=== PATIENT | female | born 1950 | race Two or more races ===

== ENCOUNTER 2023-05-24 15:01 | Emergency (ER) | payer OTHER, MEDICAID ==
[~2023-05-24] VITALS: Ht 152.4 cm; Wt 98.5 kg
[2023-05-24 15:10] VITALS: BP 181/100; RESP 18; O2SAT 96
[2023-05-24 15:27] VITALS: PULSE 104
[2023-05-24] MEDS ORDERED: LABETALOL HCL 5 MG/ML 4ML SYRINGE IV ONE (15:30)
[2023-05-24 15:43] LABS: Basophils # (auto) 0.1 10 ^3/uL (0-0.2); Basophils % (auto) 0.7 % (0.0-2.0); Eosinophils # (auto) 0.3 10 ^3/uL (0-0.8); Eosinophils % (auto) 2.3 % (0.0-7.0); Hematocrit 44.8 % (36.0-46.0); Hemoglobin 14.7 g/dL (12.2-16.2); Lymphocytes # (auto) 2.4 10 ^3/uL (0.4-5.4); Mean Corpuscular Hemoglobin 28.1 pg (28.0-32.0); Mean Corpuscular Hgb Conc. 32.8 g/dL (32.0-36.0); Mean Corpuscular Volume 85.8 fL (80.0-100.0); Monocytes # (auto) 0.8 10 ^3/uL (0-1.3); Monocytes % (auto) 7.1 % (0.0-12.0); Neutrophils # (auto) 7.3 10 ^3/uL (1.6-8.6); Neutrophils % (auto) 67.9 % (37.0-80.0); Red Blood Cells 5.22 10^6/uL (4.0-5.20); Red Cell Distribution Width 14.9 % (11.8-14.3); White Blood Cell 10.8 10^3/uL (4.4-10.8)
[2023-05-24 16:04] LABS: Alanine Aminotransferase 29 U/L (7-40); Albumin 4.7 g/dL (3.2-4.8); Alkaline Phosphatase 95 U/L (46-116); Anion Gap 5 (5-15); Aspartate Aminotransferase 23 U/L (13-40); BUN/Creatinine Ratio 20.9 (10.0-20.0); Blood Urea Nitrogen 18 mg/dL (9-23); Calcium 9.7 mg/dL (8.5-10.1); Carbon Dioxide 27 mmol/L (20-30); Chloride 109 mmol/L (98-107); Glucose 97 mg/dL (74-106); Sodium 141 mmol/L (136-145)
[2023-05-24 16:05] LABS: Bilirubin, Total 0.7 mg/dL (0.2-1.0); Total Protein 6.8 g/dL (5.7-8.2)
[2023-05-24 16:16] LABS: INR 1.06 (0.9-1.15); Partial Thromboplastin Time 29.9 SEC (24.5-34.5); Prothrombin Time 11.1 sec (9.3-11.8)
[2023-05-24 16:38] LABS: Urine Bacteria FEW /hpf (None Seen); Urine Blood Negative /uL (Negative); Urine Clarity Clear (Clear); Urine Color Colorless (Yellow); Urine Protein, UAD Negative (Negative); Urine Specific Gravity 1.005 (1.001-1.035); Urine Urobilinogen Normal (Negative); Urine WBC 2 /hpf (0 - 5)
[2023-05-24] MEDS ORDERED: AMLO1TAB22 PO (17:19)
== END 2023-05-24 20:36 | disposition home or self-care (01) ==
LOC: ER 15:01
DX: I10 Essential (primary) hypertension (principal); E11.9 Type 2 diabetes mellitus without complications; Z86.73 Personal history of transient ischemic attack (TIA), and cerebral infarction without residual deficits; Z86.2 Personal history of diseases of the blood and blood-forming organs and certain disorders involving the immune mechanism
CPT/HCPCS: 36415; 71045; 80053; 81001; 84484; 85025; 85610; 85730; 93005

== ENCOUNTER 2024-07-17 05:08 | Inpatient (IN) | payer MEDICAID, OTHER ==
[~2024-07-17] VITALS: Ht 152.4 cm; Wt 79.3 kg
[~2024-07-17 05:08] MED LIST: AMLO1TAB22 PO
[2024-07-17] MEDS: IOHEXOL 300 MG/ML 100ML BOTTLE IJ ONE (05:33)
[2024-07-17 05:34] VITALS: PULSE 109; RESP 96; O2SAT 96
[2024-07-17 06:23] LABS: Basophils # (auto) 0 10 ^3/uL (0-0.2); Basophils % (auto) 0.3 % (0.0-2.0); Eosinophils # (auto) 0.2 10 ^3/uL (0-0.8); Eosinophils % (auto) 1.2 % (0.0-7.0); Hematocrit 44.4 % (36.0-46.0); Hemoglobin 14.8 g/dL (12.2-16.2); Lymphocytes # (auto) 1.7 10 ^3/uL (0.4-5.4); Lymphocytes % (auto) 10.8 % (10.0-50.0); Mean Corpuscular Hemoglobin 28.9 pg (28.0-32.0); Mean Corpuscular Hgb Conc. 33.4 g/dL (32.0-36.0); Mean Corpuscular Volume 86.4 fL (80.0-100.0); Monocytes # (auto) 1.2 10 ^3/uL (0-1.3); Monocytes % (auto) 7.7 % (0.0-12.0); Neutrophils # (auto) 12.8 10 ^3/uL (1.6-8.6); Platelet Count (auto) 125 10^3/uL (140-450); Red Blood Cells 5.14 10^6/uL (4.0-5.20); Red Cell Distribution Width 14.6 % (11.8-14.3)
[2024-07-17 06:32] LABS: Alanine Aminotransferase 17 U/L (7-40); Albumin 4.8 g/dL (3.2-4.8); Alkaline Phosphatase 77 U/L (46-116); Anion Gap 9 (5-15); Aspartate Aminotransferase 15 U/L (13-40); BUN/Creatinine Ratio 23.2 (10.0-20.0); Blood Urea Nitrogen 19 mg/dL (9-23); Calcium 9.9 mg/dL (8.7-10.4); Carbon Dioxide 23 mmol/L (20-31); Chloride 105 mmol/L (98-107); Lipase 39 U/L (12-53); Potassium 4.3 mmol/L (3.5-5.1); Sodium 137 mmol/L (136-145); Total Protein 7.5 g/dL (5.7-8.2)
[2024-07-17 06:33] LABS: Bilirubin, Total 0.9 mg/dL (0.2-1.0)
[2024-07-17 06:34] LABS: Glucose 153 mg/dL (74-106)
--- NOTE | 2024-07-17 07:26 | ED.PDOC ---
GI ASSESSMENT HPI Comments 73 y/o F, with PMHx of CVA, DM, and HTN presents to the ED for CC of abdominal pain. Patient states, that she has been experiencing intermittent abdominal pain that radiates from her ribs to her back x1days. Patient relays, associated symptoms or acidic burps and abdominal pressure. Patient complains of current 8/10 abdominal pain. Patient denies fever, diarrhea, dysuria, or hematuria. No other symptoms or modifying factors present at this time. Chief Complaint: Abdominal Pain Time Seen by MD: 06:50 Primary Care Provider: HERLINDA Franco Notes: Nurses Notes, Medications, Allergies Allergies: Coded Allergies: NO KNOWN ALLERGIES (Unverified , 05/24/23) Home Meds Active Scripts Amlodipine Besylate (Amlodipine Besylate) 5 Mg Tab, 1 TAB PO DAILY for 30 Days, #30 TAB 5 Refills Prov:ANNETTE HOOVER ADAMA PAC 05/24/23 Reported Medications Clopidogrel Bisulfate (CLOPIDOGREL) 75 Mg Tab, 1 TAB PO DAILY 07/17/24 Benazepril Hcl (Benazepril Hcl) 20 Mg Tab, 1 TAB PO DAILY 07/17/24 Metformin Hydrochloride (Metformin Hcl) 500 Mg Tab, 1 TAB PO DAILY 07/17/24 Information Source: Patient Mode of Arrival: Ambulatory Timing: Days Duration: Since onset Prehospital treatment: None Quality: None Vomitus: None Stool: Normal Severity: Moderate Recent: None Recent Hx of: Diabetes Pain Location: Diffuse Modifying Factors: Nothing Associated sign and symptoms: Abdominal Pain Past Medical History PAST MEDICAL HISTORY: CVA, DM, HTN Surgical History: Denies all surgeries Family History Family History: Reviewed,noncontributory to illness, No family hx of Cancer, No family hx of DM, No family hx of Heart meaghan, No family hx of HTN, No family hx ofKidney meaghan, No family hx of Liver meaghan, No family hx of Lung meaghan, No family hx of Stroke Social History Smoker: Non-Smoker Alcohol: Denies ETOH Use Drugs: Denies Drug Use Lives In: Home Constitutional: denies: chills, diaphoresis, fatigue, fever, malaise, sweats, weakness, others EENTM: denies: blurred vision, double vision, ear bleeding, ear discharge, ear drainage, ear pain, ear ringing, eye pain, eye redness, hearing loss, mouth pain, mouth swelling, nasal discharge, nose bleeding, nose congestion, nose pain, photophobia, tearing, throat pain, throat swelling, voice changes, others Respiratory: denies: cough, hemoptysis, orthopnea, SOB at rest, shortness of breath, SOB with excertion, stridor, wheezing, others Cardiovascular: denies: chest pain, dizzy spells, diaphoresis, Dyspnea on exertion, edema, irregular heart beat, left arm pain, lightheadedness, palp itations, PND, syncope, others Gastrointestinal: reports: abdominal pain; denies: abdomen distended, blood streaked bowels, constipated, diarrhea, dysphagia, difficulty swallowing, hematemesis, melena, nausea, poor appetite, poor fluid intake, rectal bleeding, rectal pain, vomiting, others Genitourinary: denies: abnormal vagina bleeding, burning, dyspareunia, dysuria, flank pain, frequency, hematuria, incontinence, pain, , vagina disch arge, urgency, others Neurological: denies: dizziness, fainting, headache, left sided numbness, left sided weakness, numbness, paresthesia, pre-existing deficit, right sided numbness, right sided weakness, seizure, speech problems, tingling, tremors, weakness, others Musculoskeletal: reports: back pain; denies: gout, joint pain, joint swelling, muscle pain, muscle stiffness, neck pain, others Integumetry: denies: bruises, change in color, change in hair/nails, dryness, laceration, lesions, lumps, rash, wounds, others Allergic/Immunocompromised: denies: Difficulty Healing, Frequent Infections, Hives, Itching, others Hematologic/Lymphatic: denies: anemia, blood clots, easy bleeding, easy bruising, swollen glands, others Endocrine: denies: excessive hunger, excessive sweating, excessive thirst, excessive urination, flushing, intolerance to cold, intolerance to heat, unexplained weight gain, unexplained weight loss, others Psychiatric: denies: anxiety, bipolar disorder, depression, hopeless, panic disorder, schizophrenia, sleepless, suicidal, others All Other Systems: Reviewed and Negative Physical Exam General Appearance: Moderate Distress, Obese HEENT: Normal ENT Inspection, PERRL/EOMI Neck: Full Range of Motion, Non-Tender, Normal, Normal Inspection Respiratory: Chest Non-Tender, Lungs Clear, No Accessory Muscle Use, No Respiratory Distress, Normal Breath Sounds Cardiovascular: No Edema, No JVD, No Murmur, No Gallop, Normal Peripheral Pulses, Regular Rate/Rhythm Breast Exam: Deferred Gastrointestinal: Diffuse, Distended, Epigastric, No Organomegaly, No Pulsatile Mass, RUQ, Tenderness Genitalia: Deferred Pelvic: Deferred Rectal: Deferred Extremities: Inflammation, Leg edema, No calf tenderness, Pedal edema, Slow capillary refill, Swelling, Tender, Other (Bilateral venous stasis) Neurologic: Alert, 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 Was a procedure done?: No GI differential Dx Differential Diagnosis: Appendicitis, Bowel Obstruction, Cholecystitis, Constipation, Diverticular disease, Gastritis/PUD, Gastroenteritis, Inflammatory BD, Pancreatitis, Urolithiasis, Dehydration, Diabetes/ DKA, Drug toxicity, Electrolyte Imbalance, Hypovolemia, Renal Failure, Anemia X-Ray, Labs, Meds, VS Vital Signs Date Time Temp Pulse Resp B/P (MAP) Pulse Ox O2 Delivery O2 Flow Rate FiO2 07/17/24 11:57 98.7 100 14 119/59 (79) 94 98.7 07/17/24 09:27 100 15 131/84 (100) 94 07/17/24 07:31 99.0 92 16 139/73 (95) 96 99.0 07/17/24 05:34 98.9 109 20 141/75 (97) 96 98.9 07/17/24 05:34 109 96 96 Room Air* 0 21 07/17/24 05:20 98.9 109 20 141/75 (97) 96 98.9 Lab Test 07/17/24 05:30 07/17/24 05:20 Range/Units White Blood Count 16.0 H 4.4-10.8 10^3/uL Red Blood Count 5.14 4.0-5.20 10^6/uL Hemoglobin 14.8 12.2-16.2 g/dL Hematocrit 44.4 36.0-46.0 % Mean Corpuscular Volume 86.4 80.0-100.0 fL Mean Corpuscular Hemoglobin 28.9 28.0-32.0 pg Mean Corpuscular Hemoglobin Concent 33.4 32.0-36.0 g/dL Red Cell Distribution Width 14.6 H 11.8-14.3 % Platelet Count 125 L 140-450 10^3/uL Mean Platelet Volume 10.9 H 6.9-10.8 fL Neutrophils (%) (Auto) 80.0 37.0-80.0 % Lymphocytes (%) (Auto) 10.8 10.0-50.0 % Monocytes (%) (Auto) 7.7 0.0-12.0 % Eosinophils (%) (Auto) 1.2 0.0-7.0 % Basophils (%) (Auto) 0.3 0.0-2.0 % Neutrophils # (Auto) 12.8 H 1.6-8.6 10 ^3/uL Lymphocytes # (Auto) 1.7 0.4-5.4 10 ^3/uL Monocytes # (Auto) 1.2 0-1.3 10 ^3/uL Eosinophils # (Auto) 0.2 0-0.8 10 ^3/uL Basophils # (Auto) 0 0-0.2 10 ^3/uL Nucleated Red Blood Cells 0.0 % Sodium Level 137 136-145 mmol/L Potassium Level 4.3 3.5-5.1 mmol/L Chloride Level 105 98-107 mmol/L Carbon Dioxide Level 23 20-31 mmol/L Anion Gap 9 5-15 Blood Urea Nitrogen 19 9-23 mg/dL Creatinine 0.82 0.550-1.02 mg/dL Glomerular Filtration Rate Calc 76 >90 mL/min BUN/Creatinine Ratio 23.2 H 10.0-20.0 Serum Glucose 153 H 74-106 mg/dL Calcium Level 9.9 8.7-10.4 mg/dL Total Bilirubin 0.9 0.2-1.0 mg/dL Aspartate Amino Transferase (AST) 15 13-40 U/L Alanine Aminotransferase (ALT) 17 7-40 U/L Alkaline Phosphatase 77 46-116 U/L Troponin I High Sensitivity 7 </=34 ng/L Total Protein 7.5 5.7-8.2 g/dL Albumin 4.8 3.2-4.8 g/dL Lipase 39 12-53 U/L Urine Color Yellow Yellow Urine Clarity Clear Clear Urine pH 5.5 5.0-9.0 Urine Specific [place] > 1.035 H 1.001-1.035 Urine Protein 1+ H Negative Urine Ketones Negative Negative Urine Blood Negative Negative /uL Urine Nitrite Negative Negative Urine Bilirubin Negative Negative Urine Urobilinogen Normal Negative mg/dL Urine Leukocyte Esterase Trace Negative /uL Urine RBC 5 0 - 4 /hpf Urine Microscopic WBC 10 H 0-5 /HPF Urine Squamous Epithelial Cells Mod <5 /hpf Urine Calcium Oxalate Crystals Few None Seen Urine Bacteria Few H None Seen /hpf Urine Mucus Few None Seen Urine Glucose Normal Normal mg/dL Current Medications Medications (Trade) Dose Ordered Sig/Sudarshan Route Start Time Stop Time Status Last Admin Ceftriaxone Sodium 50 ml @ 100 mls/hr ONCE ONCE IV 07/17/24 12:15 07/17/24 12:44 DC 07/17/24 12:33 [place] [id number] Ph: [phone] DIAGNOSTIC IMAGING Diagnostic Imaging Report : [id number] Signed PATIENT: BETZAIDA SMITHACCT: [id number] UNIT: [id number] : 1950 LOC: ER ROOM / BED: / AGE / SEX: 73 / F ADM STATUS: REG ER SERVICE 1 ORDERING PHYSICIAN: GUILLE SKELTON MD PROCEDURE(s): CXRP - CHEST PORTABLE REASON: abdominal pain ORDER NUMBER(s): [id number], ACCESSION NUMBER(s): [id number] EXAM: XY CHEST PORTABLE Indication: pain Technique: Single frontal view of the chest was obtained Comparison: XY CHEST PORTABLE on DOS: 05/24/23 FINDINGS: Lines and Tubes: None Lungs: No focal consolidation. Pleura: No effusion. No pneumothorax. Cardiomediastinal contours: Unremarkable Bones: No acute osseous abnormality. IMPRESSION: No acute cardiopulmonary disease. ATED BY: SHAYNE ROCKWELL MD DICTATED DATE/TIME: 07/17/24757 SIGNED BY: SHAYNE ROCKWELL MD SIGNED DATE/TIME: 07/17/24757 CC: [place] [id number] Ph: [phone] DIAGNOSTIC IMAGING Diagnostic Imaging Report : [id number] Signed PATIENT: BETZAIDA SMITHACCT: [id number] UNIT: [id number] : 1950 LOC: ER ROOM / BED: / AGE / SEX: 73 / F ADM STATUS: REG ER SERVICE 0512 ORDERING PHYSICIAN: GUILLE SKELTON MD PROCEDURE(s): ABPLIV - CT AB PEL WITH IV CON ONLY REASON: abdominal pain ORDER NUMBER(s): [id number], ACCESSION NUMBER(s): [id number] Exam: CT CT AB PEL WITH IV CON ONLY History: Abdominal pain Comparison Study: None available at time of dictation. Contrast: Type of contrast: Omnipaque 300 Contrast injected: 100 mL Contrast wasted: 0 TECHNIQUE: CT of the abdomen pelvis was performed with intravenous contrast from the lung bases to the proximal femurs. Coronal and sagittal reformatted images are submitted. Radiation Dose Information: CT Dose: CTDI volume is 21.0 mGy. Dose-length product is 1125.11 mGy*cm FINDINGS: Lung Bases: Atelectasis in the lingula. Normal heart size. No pleural or pericardial effusion. Liver: The liver is normal in size. No focal lesions. Normal hepatic vascular enhancement. Gallbladder and Biliary Tree: Gallbladder edema and wall thickening with pericholecystic fat stranding. No calcified gallstones noted. Spleen: Two circumscribed enhancing masses in the spleen the larger measuring 1.1 cm. Pancreas: The pancreas is normal in appearance without focal lesions or abnormal enhancement. Adrenal Glands: Unremarkable Kidneys: Kidneys demonstrate normal symmetric enhancement without focal lesions, calculi or hydronephrosis. Bladder: There is a 1.4 cm calcified bladder stone. Bowel: The stomach is grossly normal in appearance. Small bowel is normal in caliber. Sigmoid diverticulosis without acute diverticulitis. The appendix is visualized and is normal. Peritoneum: No pneumoperitoneum. No ascites. Lymphadenopathy: No mesenteric, retroperitoneal or periportal lymphadenopathy. Abdominal Wall and Mesentery: Unremarkable. Vasculature: The visualized abdominal aorta is normal in size and caliber. Abdominal and pelvic vessels demonstrate normal enhancement. Pelvic Organs: Uterus is absent. Musculoskeletal: No aggressive focal bony lesions, acute fractures or dislocation. Multilevel facet arthropathy. Soft tissues: Left breast implant. Fat containing umbilical hernia. IMPRESSION: 1. Gallbladder wall thickening and pericholecystic fat stranding. Findings are concerning for acute cholecystitis. Right upper quadrant ultrasound is recommended. 2. Sigmoid diverticulosis without acute diverticulitis. 3. Bladder stone. All CT scans at this medical facility are performed using dose modulation techniques as appropriate to a performed exam including the following: Automated exposure control was utilized; adjustment of the MA and/or KV according to patient size; and use of iterative reconstruction technique. ATED BY: DIANE CAZARES MD DICTATED DATE/TIME: 07/17/24804 SIGNED BY: DIANE CAZARES MD SIGNED DATE/TIME: 07/17/24804 CC: X-Ray, Labs, Meds, VS Comment Course in the emergency department eventful Patient presented with severe abdominal pain with the nausea and a blood pressure of 159/95 The chest x-ray is normal CT of the abdomen and pelvis shows a bladder stone 1.4 cm acute cholecystitis and umbilical hernia CBC 87485 with 80% neutrophils H&H normal platelet count 125 CMP normal except for blood sugar of 153 Urine Lipase 39 Troponin seven Ultrasound shows acute cholelithiasis and acute cholecystitis Patient will be admitted for further care Time of 1ST Reevaluation: 07:20 Reevaluation 1ST: Unchanged Time of 2ND Reevaluation: 12:03 Reevaluation 2ND: Improved Patient Education/Counseling: Diagnosis, Treatment, Prognosis Family Education/Counseling: Diagnosis, Treatment, Prognosis, No Family Present Departure 1 Departure Time of Disposition: 19:50 Impression: Primary Impression: Acute abdominal complaint Additional Impressions: Cholecystitis Fatty liver Umbilical hernia Qualified Codes: K42.9 - Umbilical hernia without obstruction or gangrene Diabetes mellitus Qualified Codes: E11.9 - Type 2 diabetes mellitus without complications Venous stasis dermatitis of both lower extremities Disposition: ADMITTED INPATIENT Admit to: [facility] Condition: Fair Critical Care Note Critical Care Time?: No Stability Stability form required: Yes Unstable for transfer: Telemetry monitoring (Telemetry monitoring required), Requires medication (Requires Med for stabilization) Heart Score Heart Score: Heart Score Response (Comments) Value History N/A 0 EKG N/A 0 Age N/A 0 Risk Factors N/A 0 Troponin Normal limit 0 Total 0 I personally scribed for PERI CUMMINGS MD ([email or web address]) on 07/17/24 at 07:26. Electronically submitted by Renetta Jacobson ([email or web address]). I personally scribed for PERI CUMMINGS MD ([email or web address]) on 07/17/24 at 08:06. Electronically submitted by Renetta Jacobson ([email or web address]). I personally scribed for PERI CUMMINGS MD ([email or web address]) on 07/17/24 at 08:10. Electronically submitted by Renetta Jacobson ([email or web address]). PERI CUMMINGS MD Jul 17, 2024 07:26
--- NOTE | 2024-07-17 08:01 | DVH ---
EXAM: XY CHEST PORTABLE Indication: pain Technique: Single frontal view of the chest was obtained Comparison: XY CHEST PORTABLE on DOS: 05/24/23 FINDINGS: Lines and Tubes: None Lungs: No focal consolidation. Pleura: No effusion. No pneumothorax. Cardiomediastinal contours: Unremarkable Bones: No acute osseous abnormality. IMPRESSION: No acute cardiopulmonary disease.
--- NOTE | 2024-07-17 08:07 | DVH ---
Exam: CT CT AB PEL WITH IV CON ONLY History: Abdominal pain Comparison Study: None available at time of dictation. Contrast: Type of contrast: Omnipaque 300 Contrast injected: 100 mL Contrast wasted: 0 TECHNIQUE: CT of the abdomen pelvis was performed with intravenous contrast from the lung bases to th e proximal femurs. Coronal and sagittal reformatted images are submitted. Radiation Dose Information: CT Dose: CTDI volume is 21.0 mGy. Dose-length product is 1125.11 mGy*cm FINDINGS: Lung Bases: Atelectasis in the lingula. Normal heart size. No pleural or pericardial effusion. Liver: The liver is normal in size. No focal lesions. Normal hepatic vascular enhancement. Gallbladder and Biliary Tree: Gallbladder edema and wall thickening with pericholecystic fat strandi ng. No calcified gallstones noted. Spleen: Two circumscribed enhancing masses in the spleen the larger measuring 1.1 cm. Pancreas: The pancreas is normal in appearance without focal lesions or abnormal enhancement. Adrenal Glands: Unremarkable Kidneys: Kidneys demonstrate normal symmetric enhancement without focal lesions, calculi or hydroneph rosis. Bladder: There is a 1.4 cm calcified bladder stone. Bowel: The stomach is grossly normal in appearance. Small bowel is normal in caliber. Sigmoid diverti culosis without acute diverticulitis. The appendix is visualized and is normal. Peritoneum: No pneumoperitoneum. No ascites. Lymphadenopathy: No mesenteric, retroperitoneal or periportal lymphadenopathy. Abdominal Wall and Mesentery: Unremarkable. Vasculature: The visualized abdominal aorta is normal in size and caliber. Abdominal and pelvic vess els demonstrate normal enhancement. Pelvic Organs: Uterus is absent. Musculoskeletal: No aggressive focal bony lesions, acute fractures or dislocation. Multilevel facet a rthropathy. Soft tissues: Left breast implant. Fat containing umbilical hernia. IMPRESSION: 1. Gallbladder wall thickening and pericholecystic fat stranding. Findings are concerning for acute cholecystitis. Right upper quadrant ultrasound is recommended. 2. Sigmoid diverticulosis without acute diverticulitis. 3. Bladder stone. All CT scans at this medical facility are performed using dose modulation techniques as appropriate t o a performed exam including the following: Automated exposure control was utilized; adjustment of th e MA and/or KV according to patient size; and use of iterative reconstruction technique.
[2024-07-17 09:49] LABS: Urine Bacteria FEW /hpf (None Seen); Urine Blood Negative /uL (Negative); Urine Clarity Clear (Clear); Urine Color Yellow (Yellow); Urine Mucus FEW (None Seen); Urine Protein, UAD 1+ (Negative); Urine Squamous Epithelial Cell MOD /hpf (<5); Urine Urobilinogen Normal (Negative); Urine WBC 10 /HPF (0-5); Urine pH 5.5 (5.0-9.0)
[2024-07-17 09:50] LABS: Urine Specific Gravity > 1.035 (1.001-1.035)
--- NOTE | 2024-07-17 10:18 | DVH ---
EXAM: US GALLBLADDER INDICATION: Cholecystitis TECHNIQUE: Multiple real-time sonographic images were obtained of the right upper quadrant. COMPARISON: None FINDINGS: The liver demonstrates increased echotexture without focal mass lesions. The liver measures 16.8 cm in length. There is hepatopedal color doppler flow in the main portal vein. There is no intr ahepatic biliary ductal dilatation. The gallbladder is distended and contains multiple gallstones. The gallbladder wall measures 0.3 cm . The common bile duct measures 0.4 cm. There is a positive sonographic Keys's sign. The right kidney measures 7.7 cm. The right kidney is normal in contour, size, and shape. The echog enicity is normal. There is no hydronephrosis. The pancreas is not well visualized due to overlying bowel gas. Visualized portions of the aorta and inferior vena cava are unremarkable. No evidence of ascites. IMPRESSION: 1. Distended gallbladder with multiple gallstones. Positive sonographic keys's sign and mild gallbl adder wall thickening suspicious for acute cholecystitis. 2. Fatty infiltration of the liver.
[2024-07-17] MEDS: cefTRIAXone 1GM/50ML D5W 50 ML IV ONE (12:33)
[2024-07-17] MEDS ORDERED: MORPHINE SULFATE INJ 2 MG/ml SYRG IV PRN ×2 (12:45)
[2024-07-17] MEDS ORDERED: ACETAMINOPHEN 650 mg PER 20.3 mL UD PO PRN (12:45)
[2024-07-17] MEDS ORDERED: NITROGLYCERIN 0.4 MG SL TAB SL PRN (12:45)
[2024-07-17] MEDS ORDERED: DEXTROSE (50%) 50ML SYRG IV PRN (12:45)
--- NOTE | 2024-07-17 13:04 | DVHHP2 ---
History of Present Illness Reason for Visit: Abdominal pain History of Present Illness 73 y/o F, with PMHx of CVA, DM, and HTN presents to the ED for CC of abdominal pain. Patient states, that she has been experiencing intermittent abdominal pain that radiates from her ribs to her back x1days. Patient relays, associated sympt oms or acidic burps and abdominal pressure. Patient complains of current 8/10 abdominal pain. Patient denies fever, diarrhea, dysuria, or hematuria. No other symptoms or modifying factors present at this time. She was evaluated in the ER including a CT of the abdomen and pelvis as well as ultrasound of the gallbladder. These studies reveal a acute cholecystitis. Given her symptoms with these findings she is being admitted to the hospital for surgical evaluation and further management. Past Medical History CVA, DM, HTN Past Surgical History: None Family History: Hypertension Smoke: No ALCOHOL: rare Lives: with Family Review of Systems Review of Systems Abdominal pain with nausea. No fevers chills or sweats. No chest pain or shortness of breath. No headache or dizziness. Other review of systems reviewed normal. Allergies: Coded Allergies: NO KNOWN ALLERGIES (Unverified , 05/24/23) Exam Vital Signs Vital Signs Date Time Temp Pulse Resp B/P (MAP) Pulse Ox O2 Delivery O2 Flow Rate FiO2 07/17/24 11:57 98.7 100 14 119/59 (79) 94 98.7 07/17/24 05:34 Room Air* 0 21 Exam Alert awake oriented x3. HEENT neck supple no JVD pupils equal round react light. Heart regular rate and rhythm S1 was S2 no audible murmurs or gallops. Lungs fair air movement. Chest wall expansion. No rales or wheezes. Abdomen is soft. Nondistended. Tenderness to palpation in the right upper quadrant region without rebound or guarding. Extremities no edema. Positive distal pedal pulses. Neurologic no focal deficits. Labs/Xrays Labs Test 07/17/24 05:30 07/17/24 05:20 Range/Units White Blood Count 16.0 H 4.4-10.8 10^3/uL Red Blood Count 5.14 4.0-5.20 10^6/uL Hemoglobin 14.8 12.2-16.2 g/dL Hematocrit 44.4 36.0-46.0 % Mean Corpuscular Volume 86.4 80.0-100.0 fL Mean Corpuscular Hemoglobin 28.9 28.0-32.0 pg Mean Corpuscular Hemoglobin Concent 33.4 32.0-36.0 g/dL Red Cell Distribution Width 14.6 H 11.8-14.3 % Platelet Count 125 L 140-450 10^3/uL Mean Platelet Volume 10.9 H 6.9-10.8 fL Neutrophils (%) (Auto) 80.0 37.0-80.0 % Lymphocytes (%) (Auto) 10.8 10.0-50.0 % Monocytes (%) (Auto) 7.7 0.0-12.0 % Eosinophils (%) (Auto) 1.2 0.0-7.0 % Basophils (%) (Auto) 0.3 0.0-2.0 % Neutrophils # (Auto) 12.8 H 1.6-8.6 10 ^3/uL Lymphocytes # (Auto) 1.7 0.4-5.4 10 ^3/uL Monocytes # (Auto) 1.2 0-1.3 10 ^3/uL Eosinophils # (Auto) 0.2 0-0.8 10 ^3/uL Basophils # (Auto) 0 0-0.2 10 ^3/uL Nucleated Red Blood Cells 0.0 % Sodium Level 137 136-145 mmol/L Potassium Level 4.3 3.5-5.1 mmol/L Chloride Level 105 98-107 mmol/L Carbon Dioxide Level 23 20-31 mmol/L Anion Gap 9 5-15 Blood Urea Nitrogen 19 9-23 mg/dL Creatinine 0.82 0.550-1.02 mg/dL Glomerular Filtration Rate Calc 76 >90 mL/min BUN/Creatinine Ratio 23.2 H 10.0-20.0 Serum Glucose 153 H 74-106 mg/dL Calcium Level 9.9 8.7-10.4 mg/dL Total Bilirubin 0.9 0.2-1.0 mg/dL Aspartate Amino Transferase (AST) 15 13-40 U/L Alanine Aminotransferase (ALT) 17 7-40 U/L Alkaline Phosphatase 77 46-116 U/L Troponin I High Sensitivity 7 </=34 ng/L Total Protein 7.5 5.7-8.2 g/dL Albumin 4.8 3.2-4.8 g/dL Lipase 39 12-53 U/L Urine Color Yellow Yellow Urine Clarity Clear Clear Urine pH 5.5 5.0-9.0 Urine Specific [place] > 1.035 H 1.001-1.035 Urine Protein 1+ H Negative Urine Ketones Negative Negative Urine Blood Negative Negative /uL Urine Nitrite Negative Negative Urine Bilirubin Negative Negative Urine Urobilinogen Normal Negative mg/dL Urine Leukocyte Esterase Trace Negative /uL Urine RBC 5 0 - 4 /hpf Urine Microscopic WBC 10 H 0-5 /HPF Urine Squamous Epithelial Cells Mod <5 /hpf Urine Calcium Oxalate Crystals Few None Seen Urine Bacteria Few H None Seen /hpf Urine Mucus Few None Seen Urine Glucose Normal Normal mg/dL Assessment/Plan Assessment/Plan We will admit to telemetry floor. Keep her NPO. Surgical consultation obta ined. IV fluids. Empiric IV antibiotics. Pain and nausea medications. Routine labs including chest x-ray EKG and dysuria as preop evaluation. Otherwise continue rest of supportive care and treatment. Further clinical management for clinical course and the recommendation of the general surgeon. Patient is diabetic with the given her age she is at low risk for perioperative complications. Patient does not have any history of coronary artery disease or AR in the past. Patient is stable to undergo gallbladder surgery. Plan discussed with: Other My Orders Orders - JARRETT WILKERSON MD Procedure Category Date Status Time Admit ADMIT 07/17/24 Verified 12:42 Nitroglycerin PHA 07/17/24 Verified Sublingual (Ntrostat 12:45 Morphine Sulfate PHA 07/17/24 Verified Injection 12:45 Stat Ekg For Chest [facility] 07/17/24 Verified Pain 12:42 Notify Of Changes [facility] 07/17/24 Verified From Base 12:42 Digitizer For [facility] 07/17/24 Verified 24 Hours 12:42 Emergency Dysrhythmia [facility] 07/17/24 Verified Protocol 12:42 Rhythm Strips Once [facility] 07/17/24 Verified Every Shift 12:42 Oxygen By Nasal RT 07/17/24 Verified Cannula 12:42 * Surgical Consult CONS 07/17/24 Verified Npo Except Ice Chips [facility] 07/17/24 Verified 12:42 Npo (Nothing By DIET 07/17/24 Verified Mouth) Diet Lunch PTPTT LAB 07/17/24 Verified 12:42 Electrocardigram EKG 07/17/24 Verified 12:42 D5w/Sod Chlo 0.9% Ns PHA 07/17/24 Verified 12:45 Ceftriaxone Ivpb PHA 07/18/24 Verified Rocephin 09:00 Metronidazole Ivpb PHA 07/17/24 Verified Flagyl 14:00 Famotidine Injection PHA 07/17/24 Verified (Pepcid Injection) 22:00 Acetaminophen PHA 07/17/24 Verified Solution Oral 12:45 Communication Order ORDERS 07/17/24 Verified 12:42 Complete Blood Count LAB 07/18/24 Verified 04:00 Comprehensive LAB 07/18/24 Verified Metabolic Panel 04:00 Enalaprilat Injection PHA 07/17/24 Verified (Vasotec Injection 12:45 Morphine Sulfate PHA 07/17/24 Verified Injection 12:45 Morphine Sulfate PHA 07/17/24 Verified Injection 12:45 Ondansetron Hcl PHA 07/17/24 Verified (Zofran) 12:45 Glucose Blood PHA 07/17/24 Verified (Accu-Chek Comfort 18:00 Mild Sliding Scale PHA 07/17/24 Verified Npo - Q6hr 18:00 Dextrose 50% Syringe PHA 07/17/24 Verified 12:45 Problem List: (1) Acute abdominal complaint (2) Diabetes mellitus (3) Cholecystitis JARRETT WILKERSON MD Jul 17, 2024 13:04
[2024-07-17 13:58] LABS: INR 1.07 (0.9-1.15); Prothrombin Time 11.3 sec (9.3-11.8)
[2024-07-17 14:00] VITALS: PULSE 87; RESP 14; O2SAT 95
[2024-07-17] MEDS: D5W/SOD CHLO 0.9% 1,000 ML IV SCH (14:23)
[2024-07-17] MEDS: metroNIDAZOLE 500MG/100ML 100 ML IV SCH (14:26)
[2024-07-17 16:21] VITALS: PULSE 88; RESP 19; O2SAT 96
[2024-07-17] MEDS ORDERED: BENA-36 PO (16:30)
[2024-07-17] MEDS ORDERED: CLOP75TA70 PO (16:30)
[2024-07-17] MEDS ORDERED: METF-370 PO (16:30)
[2024-07-17 17:00] VITALS: BP 113/80; PULSE 88; RESP 19; TEMP 98.7; O2SAT 96
[2024-07-17] MEDS: ACCU-CHEK COMFORT CURVE STRIP VI SCH (17:21)
[2024-07-17] MEDS: InsuLIN REG 1unit/0.01ml Soln (100units/ml) SC SCH (17:22)
[2024-07-17 18:00] LABS: INR 1.12 (0.9-1.15); Prothrombin Time 11.7 sec (9.3-11.8)
--- NOTE | 2024-07-17 18:39 | ECG ---
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
[2024-07-17 20:00] VITALS: PULSE 79; PULSE 96; RESP 17; O2SAT 95
[2024-07-17 21:00] VITALS: BP 157/84; PULSE 96; RESP 17; O2SAT 85
[2024-07-17] MEDS: FAMOTIDINE (10MG/ML) 2ML VL IV SCH (21:38)
[2024-07-17] MEDS: MORPHINE SULFATE INJ 2 MG/ml SYRG IV PRN (21:39)
[2024-07-18] VITALS (13 sets, daily range): BP systolic 111–169; BP diastolic 48–83; PULSE 18–91; RESP 16–93; TEMP 82–99.7; O2SAT 91–99
[2024-07-18 06:17] LABS: Alanine Aminotransferase 14 U/L (7-40); Albumin 3.9 g/dL (3.2-4.8); Alkaline Phosphatase 58 U/L (46-116); Anion Gap 8 (5-15); BUN/Creatinine Ratio 20.5 (10.0-20.0); Blood Urea Nitrogen 17 mg/dL (9-23); Calcium 8.8 mg/dL (8.7-10.4); Carbon Dioxide 24 mmol/L (20-31); Potassium 3.6 mmol/L (3.5-5.1); Sodium 140 mmol/L (136-145); Total Protein 6.2 g/dL (5.7-8.2)
[2024-07-18 06:18] LABS: Chloride 108 mmol/L (98-107)
[2024-07-18 06:19] LABS: Aspartate Aminotransferase 11 U/L (13-40); Bilirubin, Total 1.3 mg/dL (0.2-1.0); Glucose 173 mg/dL (74-106)
[2024-07-18] MEDS: cefTRIAXone 1GM/50ML D5W 50 ML IV SCH (08:56)
[2024-07-18 09:02] LABS: Basophils # (auto) 0 10 ^3/uL (0-0.2); Basophils % (auto) 0.4 % (0.0-2.0); Eosinophils # (auto) 0.3 10 ^3/uL (0-0.8); Eosinophils % (auto) 3.4 % (0.0-7.0); Hematocrit 38.9 % (36.0-46.0); Lymphocytes # (auto) 1.8 10 ^3/uL (0.4-5.4); Lymphocytes % (auto) 18.4 % (10.0-50.0); Mean Corpuscular Hemoglobin 28.9 pg (28.0-32.0); Mean Corpuscular Hgb Conc. 33.5 g/dL (32.0-36.0); Mean Corpuscular Volume 86.3 fL (80.0-100.0); Monocytes # (auto) 1.2 10 ^3/uL (0-1.3); Monocytes % (auto) 12.4 % (0.0-12.0); Neutrophils # (auto) 6.5 10 ^3/uL (1.6-8.6); Neutrophils % (auto) 65.4 % (37.0-80.0); Red Blood Cells 4.51 10^6/uL (4.0-5.20); Red Cell Distribution Width 14.1 % (11.8-14.3)
[2024-07-18 09:09] LABS: Platelet Count (auto) 122 10^3/uL (140-450)
[2024-07-18] MEDS: SUCCINYLCHOLINE CHLORIDE 20 MG/ML 10ML VIAL IV ONE (12:01)
[2024-07-18] MEDS ORDERED: fentaNYL CITRATE 100 MCG/2 ML VL ONE (12:02)
[2024-07-18] MEDS ORDERED: PROPOFOL 10 MG/ML 20 ML IV ONE (12:03)
--- NOTE | 2024-07-18 12:04 | DVHINCON2 ---
Date of service: July 18, 2024 History of Present Illness 73yo female who presents to the hospital for evaluation of abd pain. pt has had ruq pain, and postprandial n/v/discomfort. Past Medical History breast ca, left lumpectomy, dm, htn, cad Past Surgical History back surgery, liposuction, left breast surgery Family History: Patient reports no known family medical history. Allergies: Coded Allergies: NO KNOWN ALLERGIES (Unverified , 05/24/23) Home Meds Active Scripts Amlodipine Besylate (Amlodipine Besylate) 5 Mg Tab, 1 TAB PO DAILY for 30 Days, #30 TAB 5 Refills Prov:ANNETTE HOOVER ADAMA PAC 05/24/23 Reported Medications Clopidogrel Bisulfate (CLOPIDOGREL) 75 Mg Tab, 1 TAB PO DAILY 07/17/24 Benazepril Hcl (Benazepril Hcl) 20 Mg Tab, 1 TAB PO DAILY 07/17/24 Metformin Hydrochloride (Metformin Hcl) 500 Mg Tab, 1 TAB PO DAILY 07/17/24 Current Medications Current Medications Medications (Trade) Dose Ordered Sig/Sudarshan Route PRN Reason Start Time Stop Time Status Last Admin Nitroglycerin (Ntrostat Sublingual) 0.4 mg Q5MINP PRN SL FOR CHEST PAIN 07/17/24 12:45 Morphine Sulfate 2 mg Q30M PRN IV FOR CHEST PAIN 07/17/24 12:45 Dextrose/Sodium Chloride 1,000 ml @ 75 mls/hr [id number] IV 07/17/24 12:45 07/18/24 10:53 Ceftriaxone Sodium 50 ml @ 100 mls/hr DAILY@09 IV 07/18/24 09:00 07/18/24 08:56 Metronidazole 100 ml @ 100 mls/hr Q8HR IV 07/17/24 14:00 07/18/24 05:49 Famotidine (Pepcid Injection) 20 mg Q12HR IV 07/17/24 22:00 07/18/24 08:56 Acetaminophen (Tylenol Solution Oral) 650 mg Q6HP PRN PO PAIN SCALE 1-3 OR TEMP>100.4 07/17/24 12:45 Enalaprilat (Vasotec Injection) 1.25 mg Q6HP PRN IV SBP>160 07/17/24 12:45 Morphine Sulfate 2 mg Q3HPRN PRN IV SEVERE PAIN (7-10 PAIN SCALE) 07/17/24 12:45 07/17/24 21:39 Morphine Sulfate 1 mg Q3HP PRN IV MODERATE PAIN (4-6 PAIN SCALE) 07/17/24 12:45 Ondansetron HCl (Zofran) 4 mg Q4HPRN PRN IV NAUSEA / VOMITING 07/17/24 12:45 Diagnostic Test (Pha) (Accu-Chek Comfort Curve T) 1 strip Q6HR 07/17/24 18:00 07/18/24 05:49 Insulin Human Regular (InsuLIN R) Q6HR SC 07/17/24 18:00 Dextrose 50 ml UD PRN IV Blood Sugar LESS THAN 60 07/17/24 12:45 Review of Systems neg unless mentioned in hpi Vital Signs Vital Signs Date Time Temp Pulse Resp B/P (MAP) Pulse Ox O2 Delivery O2 Flow Rate FiO2 07/18/24 09:00 99.1 81 18 136/61 (86) 94 99.1 07/18/24 08:00 Room Air* 0 21 Physical Exam gen; aaox3,nad abd; morbidly obese, soft , nd, nttp, no r r g ext; no edema Labs/Diagnostic Data Labs Test 07/18/24 08:30 07/18/24 05:27 07/17/24 21:51 07/17/24 16:45 Range/Units White Blood Count 10.0 # 4.4-10.8 10^3/uL Red Blood Count 4.51 4.0-5.20 10^6/uL Hemoglobin 13.0 12.2-16.2 g/dL Hematocrit 38.9 # 36.0-46.0 % Mean Corpuscular Volume 86.3 80.0-100.0 fL Mean Corpuscular Hemoglobin 28.9 28.0-32.0 pg Mean Corpuscular Hemoglobin Concent 33.5 32.0-36.0 g/dL Red Cell Distribution Width 14.1 11.8-14.3 % Platelet Count 122 L 140-450 10^3/uL Mean Platelet Volume 10.7 6.9-10.8 fL Neutrophils (%) (Auto) 65.4 37.0-80.0 % Lymphocytes (%) (Auto) 18.4 10.0-50.0 % Monocytes (%) (Auto) 12.4 H 0.0-12.0 % Eosinophils (%) (Auto) 3.4 0.0-7.0 % Basophils (%) (Auto) 0.4 0.0-2.0 % Neutrophils # (Auto) 6.5 1.6-8.6 10 ^3/uL Lymphocytes # (Auto) 1.8 0.4-5.4 10 ^3/uL Monocytes # (Auto) 1.2 0-1.3 10 ^3/uL Eosinophils # (Auto) 0.3 0-0.8 10 ^3/uL Basophils # (Auto) 0 0-0.2 10 ^3/uL Nucleated Red Blood Cells 0.0 % Sodium Level 140 136-145 mmol/L Potassium Level 3.6 3.5-5.1 mmol/L Chloride Level 108 H 98-107 mmol/L Carbon Dioxide Level 24 20-31 mmol/L Anion Gap 8 5-15 Blood Urea Nitrogen 17 9-23 mg/dL Creatinine 0.83 0.550-1.02 mg/dL Glomerular Filtration Rate Calc 75 >90 mL/min BUN/Creatinine Ratio 20.5 H 10.0-20.0 Serum Glucose 173 H 74-106 mg/dL Calcium Level 8.8 8.7-10.4 mg/dL Total Bilirubin 1.3 H 0.2-1.0 mg/dL Aspartate Amino Transferase (AST) 11 L 13-40 U/L Alanine Aminotransferase (ALT) 14 7-40 U/L Alkaline Phosphatase 58 46-116 U/L Total Protein 6.2 5.7-8.2 g/dL Albumin 3.9 3.2-4.8 g/dL POC Glucose 116 H 70-106 mg/dl Prothrombin Time 11.7 9.3-11.8 sec Prothrombin Time INR 1.12 0.9-1.15 Test 07/17/24 13:11 07/17/24 05:30 07/17/24 05:20 Range/Units Activated Partial Thromboplast Time 24.0 L 24.5-34.5 SEC Troponin I High Sensitivity 7 </=34 ng/L Lipase 39 12-53 U/L Urine Color Yellow Yellow Urine Clarity Clear Clear Urine pH 5.5 5.0-9.0 Urine Specific [place] > 1.035 H 1.001-1.035 Urine Protein 1+ H Negative Urine Ketones Negative Negative Urine Blood Negative Negative /uL Urine Nitrite Negative Negative Urine Bilirubin Negative Negative Urine Urobilinogen Normal Negative mg/dL Urine Leukocyte Esterase Trace Negative /uL Urine RBC 5 0 - 4 /hpf Urine Microscopic WBC 10 H 0-5 /HPF Urine Squamous Epithelial Cells Mod <5 /hpf Urine Calcium Oxalate Crystals Few None Seen Urine Bacteria Few H None Seen /hpf Urine Mucus Few None Seen Urine Glucose Normal Normal mg/dL Assessment 73 yo female with ruq pain, cholecystitis Plan/Recommendation npo after mdnite ivf iv abx pt ptt inr medical clearance consent ekg cxr Plan discussed with: Patient AGUILAR ABREU MD July 18, 2024 12:04
[2024-07-18] MEDS: ceFAZolin 2 GM/D5W50ml 50 ML IV ONE (12:09)
[2024-07-18] MEDS ORDERED: ROCURONIUM 10MG/ML 10ML VIAL IV ONE (12:23)
[2024-07-18] MEDS ORDERED: ONDANSETRON HCL 4 MG/2 ML VIAL ONE (12:26)
[2024-07-18] MEDS ORDERED: DexAMETHasone SOD PHOS 10MG/1ML VIAL INJ ONE (12:26)
[2024-07-18] MEDS ORDERED: HYDROmorphone HCL 2 MG/ML VL/or syr ONE (12:28)
[2024-07-18] MEDS: BUPIVACAINE HCL 0.25% P/F 10 ML VIAL ONE (12:56)
[2024-07-18] MEDS: LIDOCAINE W/ EPINEPHRINE 1% 20ML VIAL ONE (12:56)
[2024-07-18] MEDS ORDERED: SUGAMMADEX 200mg/2ml Vial (100MG/ML) IV ONE (13:16)
--- NOTE | 2024-07-18 13:31 | DVHOP2 ---
Operative Report Preop diagnosis: Acute cholecystitis, morbid obesity postop diagnosis: Gangrenous cholecystitis, intra-abdominal adhesions Procedure performed: 1. Laparoscopic cholecystectomy 2. Laparoscopic lysis of adhesions Surgeon: Dr. Dejon Giordano Anesthesiologists: Dr. Ruiz Anesthesia administered general and local Complications none Specimen gallbladder EBL 25 cc This is a 73-year-old morbidly obese female who presents to the hospital with right upper quadrant pain postprandial nausea vomiting discomfort found to have acute cholecystitis on physical exam and imaging I explained the risks benefits and alternatives of the procedure she wished to proceed with surgical intervention and was consented as such Findings: Extremely distended gallbladder thickened gallbladder wall omental adhesions covering the entire gallbladder all consistent with gangrenous cholecystitis and extensive intra-abdominal adhesions Procedure in detail: Patient was identified in the preoperative holding area questions were answered consent was confirmed transferred to the operating room table placed supine on the OR room table appropriately padded positioned and secured to the table after the induction of general anesthesia the patient was widely prepped and draped in usual sterile fashion time-out performed all in agreement next a 2 cm infraumbilical midline incision made with 15 blade scalpel deepened with cautery through the skin and subcutaneous tissues down to the level of the fascia the fascia was identified grasped with Sadiq lifted and sharply incised harmless entry to the abdominal cavity was gained 0 Vicryl U- stitch placed in the fascia Ian port introduced pneumoperitoneum was started without any cardiovascular compromise upon evaluation there was dense omental adhesions covering the entire field of view this was likely due to her previous abdominoplasty next a 5 mm Optiview technique was used at [place]. Harmless entry to the abdominal cavity was gained adhesiolysis was undertaken to facilitate Carrillo port placement at the umbilical region. Once this was done 3 more 5 mm ports were placed 1 in the subxiphoid 2 in the right upper quadrant patient was placed in reverse Trendelenburg with right side up and toward the positioning well upon evaluation of the right upper quadrant the gallbladder was completely covered in dense omental adhesions subxiphoid and left upper quadrant accessory ports were used to facilitate adhesiolysis approximately 20 minutes of laparoscopic lysis of adhesions was undertaken to free the adhesions from the gallbladder once this was done the gallbladder was extremely tense once it was visualized and had to be aspirated very thick black bile was evacuated. This indicated that is this was a chronic process. Once this was done the gallbladder could be retracted cephalad and lateral infundibulum was retracted laterally there was dense adhesions in the cholecystic triangle these were all carefully taken down with laparoscopic lysis of adhesions using blunt dissection and selective cautery for another 15 minutes. Once this was done cystic duct cystic artery were skeletonized critical view of safety was achieved both structures were dissected free doubly clipped and cut gallbladder dissected off liver fossa placed in Endo-Catch bag fossa was very oozy due to the nature of the inflammation both cautery Surgicel and snow was used to achieve hemostasis once hemostasis was secured the fossa was thoroughly irrigated and suctioned out all ports removed under direct vision pneumoperitoneum evacuated specimen passed off for pathological analysis. Midline closed with 0 Vicryl 2-0 Vicryl skin closed with mikaela local infiltrated in all port sites patient was cleaned off sterile dressings applied all counts correct x2 at the case patient tolerated the procedure well transferred to PACU in stable condition I updated to contact [facility] after surgery DEJON GIORDANO MD July 18, 2024 13:31
[2024-07-18] MEDS ORDERED: ACETAMINOPHEN IV 1000 MG/100ML (10MG/ML) IV PRN (13:45)
[2024-07-18] MEDS ORDERED: MEPERIDINE HCL (25 MG/ML) 1ML VIAL IV PRN (13:45)
[2024-07-18] MEDS: ONDANSETRON HCL 4 MG/2 ML VIAL IV ONE (13:45)
[2024-07-18] MEDS ORDERED: HYDROmorphone HCL 2 MG/ML VL/or syr IV PRN (13:45)
--- NOTE | 2024-07-18 15:07 | DVHPN2 ---
Progress Note - Dictate Date Seen: July 18, 2024 Medical Necessity Reason Pt with a Central, PICC or Fol: No Subjective She underwent successful gallbladder surgery today. Resume her diet. Pain control. Monitor overnight. vital signs Vital Sign Date Time Temp Pulse Resp B/P (MAP) Pulse Ox O2 Delivery O2 Flow Rate FiO2 07/18/24 09:00 99.1 81 18 136/61 (86) 94 99.1 07/18/24 08:00 Room Air* 0 21 Total Intake and Output 07/17/24 07/17/24 07/18/24 15:00 23:00 07:00 Intake Total 50 ml 100 ml 900 ml Balance 50 ml 100 ml 900 ml medications Current Medications Medications Dose Ordered Sig/Sudarshan Route Start Time Stop Time Status Last Admin Dose Admin Nitroglycerin 0.4 mg Q5MINP PRN SL 07/17/24 12:45 Morphine Sulfate 2 mg Q30M PRN IV 07/17/24 12:45 Dextrose/Sodium Chloride 1,000 ml @ 75 mls/hr [id number] IV 07/17/24 12:45 07/18/24 10:53 75 MLS/HR Famotidine 20 mg Q12HR IV 07/17/24 22:00 07/18/24 08:56 20 MG Acetaminophen 650 mg Q6HP PRN PO 07/17/24 12:45 Enalaprilat 1.25 mg Q6HP PRN IV 07/17/24 12:45 Morphine Sulfate 2 mg Q3HPRN PRN IV 07/17/24 12:45 07/17/24 21:39 2 MG Morphine Sulfate 1 mg Q3HP PRN IV 07/17/24 12:45 Ondansetron HCl 4 mg Q4HPRN PRN IV 07/17/24 12:45 Diagnostic Test (Pha) 1 strip Q6HR 07/17/24 18:00 07/18/24 05:49 1 STRIP Insulin Human Regular Q6HR SC 07/17/24 18:00 Dextrose 50 ml UD PRN IV 07/17/24 12:45 Piperacillin Sod/ Tazobactam Sod 100 ml @ 25 mls/hr Q8HR IV 07/18/24 14:00 objective Comfortable in bed without distress. HEENT neck supple no JVD. Heart regular rate and rhythm S1 and S2. Lungs without rales wheezes. Abdomen soft positive bowel sounds. Extremities no significant edema. laboratory and microbiology Laboratory Tests 07/18/24 08:30 07/18/24 05:27 Test 07/18/24 05:27 Range/Units Serum Glucose 173 H 74-106 mg/dL Assessment/Plan Status post laparoscopic cholecystectomy. Per surgery recommendations we will monitor her overnight. Advance diet as she tolerates. Pain control. Possible discharge home tomorrow with the oral pain meds and antibiotics. Further clinical management per clinical course. Problems(with codes): (1) Fatty liver (2) Diabetes mellitus (3) Cholecystitis Plan discussed with: Other JARRETT WILKERSON MD July 18, 2024 15:07
[2024-07-18] MEDS: PIPERACILLIN-TAZOB 3.375GM 100 ML IV SCH (15:27)
--- NOTE | 2024-07-18 16:38 | DVHSR ---
APPROVED REPORT EXAM: LIMITED Two-dimensional and M-mode echocardiogram with Doppler and color Doppler. Blood Pressure: 134/72 mmHg INDICATION Pre-Op RISK FACTORS Height: 5', Weight: 210 DIMENSIONS LVDd4.7 (3.8-5.7cm)LA (2D)3.7 (1.9-4.0cm)Aortic Root2.8 (2.0-3.7cm) LVDs3.4 (2.5-4.0cm)LA (MM) (1.9-4.0cm)Aortic Cusp Exc1.5 (1.5-2.0cm) EF (%) 53.0 (55-70%)Rt. Atrium3.5 (1.9-4.0cm)Asc. Aorta cm IVSd0.9 (0.7-1.1cm)RV (D) (1.8-2.4cm) PWd0.9 (0.7-1.1cm) Mitral Valve MitralMitral Stenosis E wave0.50m/sMV Mean GR.mmHg A wave0.90m/sMV Peak GR.mmHg E/A ratio0.62D MVAcm2 Aortic Valve Aortic ValveAortic Stenosis V10.80m/Nohemi Mean GR.4mmHg V21.30m/Nohemi Peak GR.7mmHg LVOT Diameter2.2 (1.8-2.4cm)Doppler AVA2.34cm2 Other Information Quality : Technically LimitedRhythm : Technically limited study due to body habitus, patient with mastectomy and implants. Conclusion Technically good study. Sinus rhythm. Normal chamber sizes. Normal valves. EF of 55% with normal RV function. Doppler reveals no significant regurgitant jets. Small pericardial effusion not hemodynamically significant. No intracardiac masses thrombi or vegetations discernible.
[2024-07-18] MEDS: ENALAPRILAT 1.25 MG/ML-1ML VIAL IV PRN (17:31)
[2024-07-18] MEDS: ONDANSETRON HCL 4 MG/2 ML VIAL IV PRN (19:24)
[2024-07-19] VITALS (7 sets, daily range): BP systolic 121–153; BP diastolic 68–75; PULSE 63–104; RESP 16–19; TEMP 97.9–98.3; O2SAT 94–100
--- NOTE | 2024-07-19 08:04 | ECG ---
[facility] Test Date: 2024-07-18 Test Time: 14:46:54 Pat Name: BETZAIDA SMITH Department: Room: [address] [place] [address] 3 Gender: F Medical Case Worker: LOBO : 1950 Requested By: ANDREW PARIKH Order Number: [id number] Reading MD: Aidan Lima Measurements Intervals [place] Rate: 72 P: 18 MT: 152 QRS: -19 QRSD: 92 T: 6 QT: 408 QTc: 446 Interpretive Statements Normal sinus rhythm Moderate voltage criteria for LVH, may be normal variant Possible Lateral infarct , age undetermined Inferior infarct , age undetermined Electronically Signed On 07-19-2024 9:08:34 PDT by Aidan Lima Please click the below link to view image of tracing.
[2024-07-19 08:31] LABS: Basophils # (auto) 0 10 ^3/uL (0-0.2); Basophils % (auto) 0.1 % (0.0-2.0); Eosinophils # (auto) 0 10 ^3/uL (0-0.8); Hematocrit 46.6 % (36.0-46.0); Hemoglobin 15.6 g/dL (12.2-16.2); Lymphocytes # (auto) 1.1 10 ^3/uL (0.4-5.4); Lymphocytes % (auto) 6.1 % (10.0-50.0); Mean Corpuscular Hemoglobin 28.7 pg (28.0-32.0); Mean Corpuscular Hgb Conc. 33.4 g/dL (32.0-36.0); Mean Corpuscular Volume 85.9 fL (80.0-100.0); Monocytes # (auto) 0.8 10 ^3/uL (0-1.3); Monocytes % (auto) 4.5 % (0.0-12.0); Neutrophils # (auto) 16.4 10 ^3/uL (1.6-8.6); Neutrophils % (auto) 89.3 % (37.0-80.0); Nucleated Red Blood Cells % 0.1 %; Platelet Count (auto) 160 10^3/uL (140-450); Red Blood Cells 5.42 10^6/uL (4.0-5.20); Red Cell Distribution Width 14.3 % (11.8-14.3); White Blood Cell 18.4 10^3/uL (4.4-10.8)
[2024-07-19] MEDS: amLODIPine BESYLATE 5 MG TAB PO SCH (11:48)
[2024-07-19] MEDS: BENAZEPRIL HCL 10 MG TAB PO SCH (11:48)
[2024-07-19] MEDS ORDERED: METR-344 PO (12:44)
[2024-07-19] MEDS ORDERED: HYDR-4902 PO (12:44)
[2024-07-19] MEDS ORDERED: AMOX500T86 PO (12:44)
[2024-07-19 16:08] LABS: Basophils # (auto) 0 10 ^3/uL (0-0.2); Basophils % (auto) 0.1 % (0.0-2.0); Eosinophils # (auto) 0 10 ^3/uL (0-0.8); Hematocrit 43.8 % (36.0-46.0); Hemoglobin 14.4 g/dL (12.2-16.2); Lymphocytes # (auto) 1.3 10 ^3/uL (0.4-5.4); Lymphocytes % (auto) 6.2 % (10.0-50.0); Mean Corpuscular Hemoglobin 28.6 pg (28.0-32.0); Mean Corpuscular Hgb Conc. 32.9 g/dL (32.0-36.0); Mean Corpuscular Volume 86.9 fL (80.0-100.0); Monocytes # (auto) 1.7 10 ^3/uL (0-1.3); Monocytes % (auto) 8.2 % (0.0-12.0); Neutrophils % (auto) 85.5 % (37.0-80.0); Platelet Count (auto) 156 10^3/uL (140-450); Red Blood Cells 5.04 10^6/uL (4.0-5.20); Red Cell Distribution Width 14.3 % (11.8-14.3)
[2024-07-19] MEDS ORDERED: VANCOMYCIN PER PHARMACY 0 MG IV SCH (17:00)
[2024-07-19] MEDS: VANCOMYCIN 1GM/200ML PM 200 ML IV ONE (18:01)
[2024-07-20] VITALS (7 sets, daily range): BP systolic 100–127; BP diastolic 56–86; PULSE 70–91; RESP 17–18; TEMP 36.6; O2SAT 93–98
[2024-07-20 05:40] LABS: Basophils # (auto) 0 10 ^3/uL (0-0.2); Basophils % (auto) 0.2 % (0.0-2.0); Eosinophils # (auto) 0.1 10 ^3/uL (0-0.8); Eosinophils % (auto) 0.5 % (0.0-7.0); Hematocrit 39.9 % (36.0-46.0); Lymphocytes # (auto) 1.6 10 ^3/uL (0.4-5.4); Mean Corpuscular Hemoglobin 28.1 pg (28.0-32.0); Mean Corpuscular Hgb Conc. 32.6 g/dL (32.0-36.0); Mean Corpuscular Volume 86.2 fL (80.0-100.0); Monocytes # (auto) 1.2 10 ^3/uL (0-1.3); Monocytes % (auto) 9.3 % (0.0-12.0); Neutrophils # (auto) 10.2 10 ^3/uL (1.6-8.6); Nucleated Red Blood Cells % 0.1 %; Platelet Count (auto) 146 10^3/uL (140-450); Red Blood Cells 4.63 10^6/uL (4.0-5.20); Red Cell Distribution Width 14.2 % (11.8-14.3); White Blood Cell 13.1 10^3/uL (4.4-10.8)
[2024-07-20] MEDS: VANCOMYCIN 1GM/200ML PM 200 ML IV SCH (09:36)
--- NOTE | 2024-07-20 15:01 | DVHDS2 ---
Discharge Summary Date of Admission Jul 17, 2024 at 12:42 Date of Discharge: July 20, 2024 Labs/Diagnostic Data: Laboratory Results Test 07/20/24 12:13 07/20/24 05:01 07/18/24 05:27 07/17/24 16:45 POC Glucose 174 mg/dl (70-106) White Blood Count 13.1 10^3/uL (4.4-10.8) Red Blood Count 4.63 10^6/uL (4.0-5.20) Hemoglobin 13.0 g/dL (12.2-16.2) Hematocrit 39.9 % (36.0-46.0) Mean Corpuscular Volume 86.2 fL (80.0-100.0) Mean Corpuscular Hemoglobin 28.1 pg (28.0-32.0) Mean Corpuscular Hemoglobin Concent 32.6 g/dL (32.0-36.0) Red Cell Distribution Width 14.2 % (11.8-14.3) Platelet Count 146 10^3/uL (140-450) Mean Platelet Volume 11.3 fL (6.9-10.8) Neutrophils (%) (Auto) 78.0 % (37.0-80.0) Lymphocytes (%) (Auto) 12.0 % (10.0-50.0) Monocytes (%) (Auto) 9.3 % (0.0-12.0) Eosinophils (%) (Auto) 0.5 % (0.0-7.0) Basophils (%) (Auto) 0.2 % (0.0-2.0) Neutrophils # (Auto) 10.2 10 ^3/uL (1.6-8.6) Lymphocytes # (Auto) 1.6 10 ^3/uL (0.4-5.4) Monocytes # (Auto) 1.2 10 ^3/uL (0-1.3) Eosinophils # (Auto) 0.1 10 ^3/uL (0-0.8) Basophils # (Auto) 0 10 ^3/uL (0-0.2) Nucleated Red Blood Cells 0.1 % Creatinine 0.93 mg/dL (0.550-1.02) Glomerular Filtration Rate Calc 65 mL/min (>90) Sodium Level 140 mmol/L (136-145) Potassium Level 3.6 mmol/L (3.5-5.1) Chloride Level 108 mmol/L (98-107) Carbon Dioxide Level 24 mmol/L (20-31) Anion Gap 8 (5-15) Blood Urea Nitrogen 17 mg/dL (9-23) BUN/Creatinine Ratio 20.5 (10.0-20.0) Serum Glucose 173 mg/dL (74-106) Calcium Level 8.8 mg/dL (8.7-10.4) Total Bilirubin 1.3 mg/dL (0.2-1.0) Aspartate Amino Transferase (AST) 11 U/L (13-40) Alanine Aminotransferase (ALT) 14 U/L (7-40) Alkaline Phosphatase 58 U/L (46-116) Total Protein 6.2 g/dL (5.7-8.2) Albumin 3.9 g/dL (3.2-4.8) Prothrombin Time 11.7 sec (9.3-11.8) Prothrombin Time INR 1.12 (0.9-1.15) Test 07/17/24 13:11 07/17/24 05:30 07/17/24 05:20 Activated Partial Thromboplast Time 24.0 SEC (24.5-34.5) Troponin I High Sensitivity 7 ng/L (</=34) Lipase 39 U/L (12-53) Urine Color Yellow (Yellow) Urine Clarity Clear (Clear) Urine pH 5.5 (5.0-9.0) Urine Specific [place] > 1.035 (1.001-1.035) Urine Protein 1+ (Negative) Urine Ketones Negative (Negative) Urine Blood Negative /uL (Negative) Urine Nitrite Negative (Negative) Urine Bilirubin Negative (Negative) Urine Urobilinogen Normal mg/dL (Negative) Urine Leukocyte Esterase Trace /uL (Negative) Urine RBC 5 /hpf (0 - 4) Urine Microscopic WBC 10 /HPF (0-5) Urine Squamous Epithelial Cells Mod /hpf (<5) Urine Calcium Oxalate Crystals Few (None Seen) Urine Bacteria Few /hpf (None Seen) Urine Mucus Few (None Seen) Urine Glucose Normal mg/dL (Normal) Other Laboratory Tests 07/20/24 05:01 07/18/24 05:27 Brief Hx & Hospital Course: 73 y/o F, with PMHx of CVA, DM, and HTN presents to the ED for CC of abdominal pain. Patient states, that she has been experiencing intermittent abdominal pain that radiates from her ribs to her back x1days. Patient relays, associated symptoms or acidic burps and abdominal pressure. Patient complains of current 8/10 abdominal pain. Patient denies fever, diarrhea, dysuria, or hematuria. No other symptoms or modifying factors present at this time. She was evaluated in the ER including a CT of the abdomen and pelvis as well as ultrasound of the gallbladder. These studies reveal a acute cholecystitis. Given her symptoms with these findings she is being admitted to the hospital for surgical evaluation and further management. She is admitted and evaluated by general surgeon and underwent successful laparoscopic cholecystectomy. Postop patient monitored and did well. She was afebrile. White cell count has improved. Tolerating diet. Had bowel movement. No significant abdominal pain. Therefore it is felt she could be safely discharged home with close outpatient follow up with the surgeon. I have talked with the patient and at bedside regarding her hospital diagnosis, treatment she received, discharge medications, discharge instructions and follow-up plan of care. They have verbalized understanding of these and agree with the care plan as outlined. Operations or Procedures Operative Report Preop diagnosis: Acute cholecystitis, morbid obesity postop diagnosis: Gangrenous cholecystitis, intra-abdominal adhesions Procedure performed: 1. Laparoscopic cholecystectomy 2. Laparoscopic lysis of adhesions Surgeon: Dr. Dejon Giordaon Anesthesiologists: Dr. Ruiz Anesthesia administered general and local Complications none Specimen gallbladder EBL 25 cc This is a 73-year-old morbidly obese female who presents to the hospital with right upper quadrant pain postprandial nausea vomiting discomfort found to have acute cholecystitis on physical exam and imaging I explained the risks benefits and alternatives of the procedure she wished to proceed with surgical intervention and was consented as such Findings: Extremely distended gallbladder thickened gallbladder wall omental adhesions covering the entire gallbladder all consistent with gangrenous cholecystitis and extensive intra-abdominal adhesions Procedure in detail: Patient was identified in the preoperative holding area questions were answered consent was confirmed transferred to the operating room table placed supine on the OR room table appropriately padded positioned and secured to the table after the induction of general anesthesia the patient was widely prepped and draped in usual sterile fashion time-out performed all in agreement next a 2 cm infraumbilical midline incision made with 15 blade scalpel deepened with cautery through the skin and subcutaneous tissues down to the level of the fascia the fascia was identified grasped with Sadiq lifted and sharply incised harmless entry to the abdominal cavity was gained 0 Vicryl U- stitch placed in the fascia Ian port introduced pneumoperitoneum was started without any cardiovascular compromise upon evaluation there was dense omental adhesions covering the entire field of view this was likely due to her previous abdominoplasty next a 5 mm Optiview technique was used at [facility]. Harmless entry to the abdominal cavity was gained adhesiolysis was undertaken to facilitate Carrillo port placement at the umbilical region. Once this was done 3 more 5 mm ports were placed 1 in the subxiphoid 2 in the right upper quadrant patient was placed in reverse Trendelenburg with right side up and toward the positioning well upon evaluation of the right upper quadrant the gallbladder was completely covered in dense omental adhesions subxiphoid and left upper quadrant accessory ports were used to facilitate adhesiolysis approximately 20 minutes of laparoscopic lysis of adhesions was undertaken to free the adhesions from the gallbladder once this was done the gallbladder was extremely tense once it was visualized and had to be aspirated very thick black bile was evacuated. This indicated that is this was a chronic process. Once this was done the gallbladder could be retracted cephalad and lateral infundibulum was retracted laterally there was dense adhesions in the cholecystic triangle these were all carefully taken down with laparoscopic lysis of adhesions using blunt dissection and selective cautery for another 15 minutes. Once this was done cystic duct cystic artery were skeletonized critical view of safety was achieved both structures were dissected free doubly clipped and cut gallbladder dissected off liver fossa placed in Endo-Catch bag fossa was very oozy due to the nature of the inflammation both cautery Surgicel and snow was used to achieve hemostasis once hemostasis was secured the fossa was thoroughly irrigated and suctioned out all ports removed under direct vision pneumoperitoneum evacuated specimen passed off for pathological analysis. Midline closed with 0 Vicryl 2-0 Vicryl skin closed with mikaela local infiltrated in all port sites patient was cleaned off sterile dressings applied all counts correct x2 at the case patient tolerated the procedure well transferred to PACU in stable condition I updated to contact Kwadwo after surgery DEJON GIORDANO MD July 18, 2024 13:31 APPROVED REPORT EXAM: LIMITED Two-dimensional and M-mode echocardiogram with Doppler and color Doppler. Blood Pressure: 134/72 mmHg INDICATION Pre-Op RISK FACTORS Height: 5', Weight: 210 DIMENSIONS LVDd 4.7 (3.8-5.7cm) LA (2D) 3.7 (1.9-4.0cm) Aortic Root 2.8 (2.0- 3.7cm) LVDs 3.4 (2.5-4.0cm) LA (MM) (1.9-4.0cm) Aortic Cusp Exc 1.5 (1.5- 2.0cm) EF (%) 53.0 (55-70%) Rt. Atrium 3.5 (1.9-4.0cm) Asc. Aorta cm IVSd 0.9 (0.7-1.1cm) RV (D) (1.8-2.4cm) PWd 0.9 (0.7-1.1cm) Mitral Valve Mitral Mitral Stenosis E wave 0.50m/s MV Mean GR. mmHg A wave 0.90m/s MV Peak GR. mmHg E/A ratio 0.6 2D MVA cm2 Aortic Valve Aortic Valve Aortic Stenosis V1 0.80m/s AO Mean GR. 4mmHg V2 1.30m/s AO Peak GR. 7mmHg LVOT Diameter 2.2 (1.8-2.4cm) Doppler NATALIIA 2.34cm2 Other Information Quality : Technically Limited Rhythm : Technically limited study due to body habitus, patient with mastectomy and implants. Conclusion Technically good study. Sinus rhythm. Normal chamber sizes. Normal valves. EF of 55% with normal RV function. Doppler reveals no significant regurgitant jets. Small pericardial effusion not hemodynamically significant. No intracardiac masses thrombi or vegetations discernible. SIGNED BY: JAY FITZPATRICK Sr., MD SIGNED DATE/TIME: 07/18/24 2782 Condition at Discharge: Stable Final Diagnosis/Problems List acute cholecystitis, obesity, s/p lap devin, htn Discharge Disposition: Home Discharge Instruct/Medications Diet: Consistent carbohydrate, Cardiac 2g Na,low cholest Activity: No Restrictions, As Tolerated Follow Up/Referral: Dr.Mitesh Giordano surgeon after 2 weeks post surgery follow up Medications: as prescribed and home meds New Medications: Amoxicillin & Pot Clavulanate (Augmentin) 500 Mg Tab 1 TAB PO BID, #10 TAB Hydrocodone-Acetaminophen (Hydrocodone Bitartrate/AC 5-325 mg) 1 Tab Tab 1 TAB PO Q6HPRN PRN, #10 TAB Metronidazole (Flagyl) 500 Mg Tab 1 TAB PO BID, #14 TAB Continued Medications: Amlodipine Besylate (Amlodipine Besylate) 5 Mg Tab 1 TAB PO DAILY for 30 Days, #30 TAB 5 Refills Benazepril Hcl (Benazepril Hcl) 20 Mg Tab 1 TAB PO DAILY Clopidogrel Bisulfate (Clopidogrel) 75 Mg Tab 1 TAB PO DAILY Metformin Hydrochloride (Metformin Hcl) 500 Mg Tab 1 TAB PO DAILY Discharge Statement: "Patient was advised to return to the ER or call 911 if any headaches, dizziness, shortness of breath, chest pain, abdominal pain, bleeding, fevers, or worsening of medical condition. Patient was counseled about treatment plan, medications, possible side effects, patientverbalized understanding. All questions were answered to the best of my ability. This discharge took greater then 30 minutes in planning, reviewing documentation, counseling the patient, and discussing with other team members." ASSESSMENT ASSESSMENT Assessment acute cholecystitis, obesity, s/p lap devin, htn JARRETT WILKERSON MD July 20, 2024 15:01
== END 2024-07-20 15:57 | disposition home or self-care (01) | DRG 418 ==
LOC: ER 05:08 → OVERFLOW 12:42 → EAST 15:59 → TELE-EAST 07-18 19:36
PROVIDERS: ADMIT Hospitalist; ATTEND Hospitalist
PROC: 0FN44ZZ Release Gallbladder, Percutaneous Endoscopic Approach (ICD-10-PCS; 2024-07-18)
PROC: 0DNU4ZZ Release Omentum, Percutaneous Endoscopic Approach (ICD-10-PCS; 2024-07-18)
PROC: 0FT44ZZ Resection of Gallbladder, Percutaneous Endoscopic Approach (ICD-10-PCS; principal; 2024-07-18 12:16)
DX: K81.0 Acute cholecystitis (principal); Z68.41 Body mass index [BMI] 40.0-44.9, adult; E11.9 Type 2 diabetes mellitus without complications; K76.0 Fatty (change of) liver, not elsewhere classified; I10 Essential (primary) hypertension; I87.2 Venous insufficiency (chronic) (peripheral); I25.10 Atherosclerotic heart disease of native coronary artery without angina pectoris; E66.01 Morbid (severe) obesity due to excess calories; K42.9 Umbilical hernia without obstruction or gangrene; K66.0 Peritoneal adhesions (postprocedural) (postinfection); K82.A1 Gangrene of gallbladder in cholecystitis; Z86.73 Personal history of transient ischemic attack (TIA), and cerebral infarction without residual deficits; Z79.84 Long term (current) use of oral hypoglycemic drugs; Z79.899 Other long term (current) drug therapy; Z82.49 Family history of ischemic heart disease and other diseases of the circulatory system; Z85.3 Personal history of malignant neoplasm of breast
CPT/HCPCS: 36415; 71045; 74177; 76705; 80053; 81001; 82565; 82962; 83690; 84484; 85025; 85610; 85730; 86850; 86900; 86901; 93005; 93306; 96365; 97110; 97116; 97163; G0378; J0330; J1100; J1815; J2405; J2543; J2704; J3490